=== PATIENT | male | born 1975 | race Hispanic/Latino ===

== ENCOUNTER → 2019-06-15 | Outpatient (CLI) | payer BC ==
[~2019-06-15] MED LIST: CEPHALEXIN500 MG PO; DIFLUCAN100 MG; FENOFIBRATE145 MG PO; GABAPENTIN300 MG PO; GLYBURIDE5 MG PO; LEVAQUIN500 MG PO; METFORMIN HCL500 MG PO; NOVOLOG100 UNITS/ SC; SIMVASTATIN40 MG PO; TOUJEO SOL300 UNIT/1 SQ; ZESTRIL20 MG PO
--- NOTE | 2019-06-15 12:21 | Diagnostic Imaging Report ---
Left shoulder, 2 views. History: Left shoulder pain. Findings: The soft tissues are normal. Bone mineralization is normal. There is no evidence of fracture or dislocation. There are no lytic or sclerotic lesions. There is mild AC joint hypertrophy and mild narrowing of the glenohumeral joint. IMPRESSION: Mild left shoulder DJD. Signed by: Dony Camargo on 06/15/2019 12:18 PM
== END ==
LOC: RAD 11:08
DX: M25.512 Pain in left shoulder (principal)